=== PATIENT | male | born 1930 | race Caucasian/White ===

== ENCOUNTER 2016-12-07 16:03 | Inpatient (IN) ==
--- NOTE | 2016-12-07 16:58 | Emergency Department Note ---
GI Bleed HPI - General Chief complaint: Rectal Bleed Stated complaint: Blood in stool Time Seen by Provider: 12/07/16 16:56 Source: patient Mode of arrival: EMS Limitations: no limitations - History of Present Illness HPI Narrative: Bloody bowel movements daily for the last 2 days it. He states on average is had 2 bowel movements which were just grossly bloody. He does take Aleve, used to take aspirin but no longer does that. Cannot remember when he last took aspirin. Denies being on any blood thinners, no history of recent colonoscopy, he states last colonoscopy was about [address] Dejesus. The. Denies any abdominal pain. He's had no nausea, vomiting or cramps, denies any dizziness or lightheadedness. MD complaint: melena - Related Data Home Medications Medication Instructions Recorded Confirmed Naproxen Sodium [All Day Relief] 220 mg PO PRN PRN 06/26/16 12/07/16 Omeprazole [PriLOSEC] 20 mg PO ACB 06/26/16 12/07/16 levETIRAcetam [Keppra] 500 mg PO BID 06/26/16 12/07/16 Allergies Allergy/AdvReac Type Severity Reaction Status Date / Time No Known Drug Allergies Allergy Verified 12/07/16 16:07 Review of Systems All systems ED: reviewed and negative except as stated. Past Medical History - Past Medical History Source: nursing notes reviewed Medical history: Reports: arthritis, GERD, seizures Surgical history ED: Reports: cholecystectomy Family history: Reports: no significant family history - Social History smoking status: Never smoker Alcohol use: Reports: Occasionally Drug use: Reports: none Physical Exam - General Limitations: no limitations General appearance: alert - Head Head exam: atraumatic - Eye Eye exam: Present: normal appearance, PERRL, EOMI. Absent: scleral icterus - ENT ENT exam: normal exam, normal oropharynx, mucous membranes moist, TM's normal bilaterally - Neck Neck exam: Present: normal inspection, full ROM - Chest Chest inspection: Present: normal inspection, symmetric chest wall rise - Respiratory Respiratory exam: Present: normal lung sounds bilaterally. Absent: respiratory distress, wheezes - Cardiovascular Cardiovascular exam: Present: regular rate, normal rhythm, normal heart sounds - Abdominal Exam Abdominal exam: Present: soft. Absent: distention, tenderness, guarding - Rectal Exam Rectal exam: Present: decreased rectal tone, bloody stool, prostate enlargement. Absent: fecal impaction, hemorrhoids - exam: Present: normal inspection - Back Exam Back exam: Present: normal inspection. Absent: CVA tenderness (R), CVA tenderness (L) - Neurological Exam Neurological exam: Present: alert, oriented X3 - Psychiatric Psychiatric exam: Present: normal affect, normal mood - Skin Skin exam: Present: warm, dry, intact, normal color. Absent: cyanosis, diaphoresis Course Vital Signs Temperature 97.1 F L 12/07/16 16:04 Pulse Rate 86 12/07/16 16:04 Respiratory Rate 18 12/07/16 16:04 Blood Pressure 113/68 12/07/16 16:04 Pulse Oximetry (%) 98 12/07/16 16:04 Temperature 97.1 F L 12/07/16 16:04 Pulse Rate 65 12/07/16 18:30 Respiratory Rate 18 12/07/16 16:04 Blood Pressure 110/99 12/07/16 18:30 Pulse Oximetry (%) 100 12/07/16 18:30 GI Bleed - [facility] Narrative Medical decision making narrative: Labs reviewed and were normal with exception his hemoglobin was 12 and hematocrit was 38. I do not have any old ones to compare to. He had a total of 2 bloody bowel movements out. He was here in the ED, we did send this for stool culture and fecal leukocytes. At this point, he was orthostatic, discussed with Dr. Johnson as well as Dr. Aguilera. The. Final diagnosis is rectal bleeding, likely diverticular bleed. - Lab Data Lab results reviewed: Yes I reviewed the patient's lab results. Result diagrams: 12/07/16 17:05 12/07/16 17:05 Lab Results 12/07/16 12/07/16 12/07/16 Range/Units 17:05 17:05 17:05 WBC 6.6 (4.5-11.0) K/mcL RBC 4.13 L (4.50-5.90) M/mcL Hgb 12.6 L (13.5-16.5) g/dL Hct 38.6 L (41.0-55.0) % MCV 93.6 (80.0-100.0) fL MCH 30.5 (26.0-34.0) pg MCHC 32.6 (31.0-36.0) g/dL RDW 13.0 (11.5-14.5) % Plt Count 303 (140-440) K/mcL MPV 8.5 (7.4-10.4) fL Gran % 59.1 (38.0-78.0) % Lymph % (Auto) 28.0 (15.5-49.0) % [place] % (Auto) 9.2 H (1.0-9.0) % Eos % (Auto) 2.6 (0.0-7.0) % Baso % (Auto) 1.1 (0.0-2.0) % Gran # 3.9 (1.8-8.0) K/mcL Lymph # 1.8 (1.5-4.8) K/mcL [place] # 0.6 (0.1-0.9) K/mcL Eos # 0.2 (0.0-0.7) K/mcL Baso # 0.1 (0.0-0.3) K/mcL POC PT 12.0 sec POC INR 1.0 (0.9-1.2) Sodium 141 (133-145) mmol/L Potassium 4.3 (3.3-5.1) mmol/L Chloride 104 (96-108) mmol/L Carbon Dioxide 26 (22-30) mmol/L Anion Gap 11.0 (8-16) BUN 16 (8-23) mg/dl Creatinine 0.8 (0.7-1.2) mg/dl GFR Calculation 80 Glucose 105 (70-105) mg/dL Calcium 8.6 (8.6-10.4) mg/dl Total Bilirubin 0.4 (0.0-1.0) mg/dL AST 18 (0-37) U/l ALT 27 (0-40) U/l Alkaline Phosphatase 85 (39-117) U/L Total Protein 6.1 (5.9-8.4) gm/dL Albumin 3.5 (3.2-5.2) gm/dL Globulin 2.6 (2.2-3.7) gm/dL Albumin/Globulin Ratio 1.3 (1.0-2.3) Disposition Clinical Impression: Lower gastrointestinal hemorrhage Disposition: Xfer As Outpt/Obs ([facility]) Condition: Fair Referrals: Javi Cooper MD [Primary Care Provider] -
[2016-12-07] MEDS ORDERED: LACTATED RINGERS 1,000 ML IV ONE (16:59)
[2016-12-07 17:38] LABS: Basophils # (Auto) 0.1 K/mcL (0.0-0.3); Basophils % (Auto) 1.1 % (0.0-2.0); Eosinophils # (Auto) 0.2 K/mcL (0.0-0.7); Eosinophils % (Auto) 2.6 % (0.0-7.0); Granulocytes % (Auto) 59.1 % (38.0-78.0); Lymphocytes # (Auto) 1.8 K/mcL (1.5-4.8); Mean Cell Volume 93.6 fL (80.0-100.0); Mean Corpuscular HGB Conc 32.6 g/dL (31.0-36.0); Mean Corpuscular Hemoglobin 30.5 pg (26.0-34.0); Monocytes # (Auto) 0.6 K/mcL (0.1-0.9); Monocytes % (Auto) 9.2 % (1.0-9.0); Platelet Count 303 K/mcL (140-440); RBC 4.13 M/mcL (4.50-5.90)
[2016-12-07 18:02] LABS: ALT/SGPT 27 U/l (0-40); Albumin 3.5 gm/dL (3.2-5.2); Albumin/Globulin Ratio 1.3 (1.0-2.3); Alkaline Phosphatase 85 U/L (39-117); Blood Urea Nitrogen 16 mg/dl (8-23)
[2016-12-07] MEDS ORDERED: ONDANSETRON 4 MG/2 ML VIAL IV PRN (19:25)
[2016-12-07] MEDS ORDERED: ACETAMINOPHEN 325 MG TABLET PO PRN (19:25)
--- NOTE | 2016-12-07 19:55 | Internal Med History&Physical ---
Medical - H&P: HPI Patient information: Note initiated : 12/07/16 at 7:49 pm Service Date, if different from initiated Date: [] Patient: Miah Ledesma 86 y/o M admitted on for Blood in stool. Chief Complaint: [] History of present illness: Mr. Ledesma is an 86 year old male who says he was in his usual state of health until about one week ago when he does both developed nausea, vomiting, and diarrhea. She says that lasted 2 or 3 days and then resolved. He says he felt reasonably well for a couple of days, and then 2 days ago began to pass gas that was associated with bright red blood. Yesterday and today he actually started having overtly bloody bowel movements, which he describes as rather explosive. He has been having some lower abdominal cramping as well. He and his are stating that he had a colonoscopy within the last 8 years, and was told it was normal and that he would never need to have another one. he presented to the emergency room for evaluation and was found to be orthostatic with his systolic blood pressure dropping from about 120 down to 103 , and his heart rate rising by 15 points. Hemoglobin is 12.6, with hematocrit of 38, compared to a hematocrit of 44 in May last year. Otherwise, he denies fever or chills, headaches or dizziness, new eye or ear symptoms,sore throat or cough, chest pain or palpitations, shortness of breath He has not had nausea or vomiting for the last 2 days. He does note some urinary hesitancy and frequency, which she's had for quite a while. Past medical history: arthritis for which he takes Aleve Seizures that started 4 or 5 years ago but none for several years History of cholecystectomy History of B12 deficiency He denies history of coronary disease, hypertension, diabetes, stroke, cancer. current medications: Aleve 1 twice a day for arthritis omeprazole 20 mg daily for GI prophylaxis Keppra 500 mg by mouth twice a day allergies: He has no known drug allergies Family history:Mother in her 80s with COPD father with OR, reportedly at a young age, he has some half siblings, but their health is unknown. Social history: The patient is and lives with his . They do not have children, and did not have family in the area. He has never been a smoker and does not use drugs. He drinks alcohol rarely. Medical - H&P: Meds Home Medications Medication Instructions Recorded Confirmed Type Naproxen Sodium [All Day Relief] 220 mg PO PRN PRN 06/26/16 12/07/16 History Omeprazole [PriLOSEC] 20 mg PO ACB 06/26/16 12/07/16 History levETIRAcetam [Keppra] 500 mg PO BID 06/26/16 12/07/16 History Allergies Allergy/AdvReac Type Severity Reaction Status Date / Time No Known Drug Allergies Allergy Verified 12/07/16 16:07 Medical - H&P: Exam - Constitutional Vitals: Temp Pulse Resp BP Pulse Ox 97.1 F L 68 18 113/68 100 12/07/16 19:07 12/07/16 19:30 12/07/16 19:07 12/07/16 19:07 12/07/16 19:07 Exam: on exam, he is a well-developed well-nourished elderly man in no acute distress. head is cephalic, atraumatic. Ears: He has bilateral hearing aids. Canals and TMs are clear. eyes:PERRLA, EOMI, anicteric. pharynx:Is normal in appearance. Mucosa appears normal. neck:Is supple, without lymphadenopathy, JVD, thyromegaly, bruits. Cardiac exam:Regular rate and rhythm, with normal S1 and S2, without murmurs, rubs, gallops. Lungs: Are clear to auscultation, without rales, rhonchi, wheezes. Abdomen: Is soft and nontender Bowel sounds are somewhat hyperactive. There is no guarding or rebound. No masses are noted. Rectal exam;Patient had grossly bloody stool in the emergency room. Extremities: Show no cyanosis, clubbing, edema. Neurologic exam:Patient is alert and oriented, calm and cooperative. Motor exam is grossly nonfocal. Skin exam:He has a few tiny scabs on his shins. Medical - H&P: Reslt - Labs CBC & Chem 7: 12/07/16 17:05 12/07/16 17:05 Labs: Short CBC 12/07/16 Range/Units 17:05 WBC 6.6 (4.5-11.0) K/mcL Hgb 12.6 L (13.5-16.5) g/dL Hct 38.6 L (41.0-55.0) % Plt Count 303 (140-440) K/mcL BMP 12/07/16 17:05 Sodium 141 Potassium 4.3 Chloride 104 Carbon Dioxide 26 BUN 16 Creatinine 0.8 Glucose 105 Calcium 8.6 Liver Function 12/07/16 Range/Units 17:05 Total Bilirubin 0.4 (0.0-1.0) mg/dL AST 18 (0-37) U/l ALT 27 (0-40) U/l Alkaline Phosphatase 85 (39-117) U/L Albumin 3.5 (3.2-5.2) gm/dL last May showed a POC hematocrit of 44 Medical - H&P: A/P (1) Seizure disorder Current visit: Yes Status: Acute (2) Osteoarthritis Current visit: Yes Status: Acute (3) History of cholecystectomy Current visit: Yes Status: Acute (4) Dehydration Current visit: No Status: Acute (5) Lower gastrointestinal hemorrhage Current visit: Yes Status: Acute #1. GI. -Patient presents with signs and symptoms of a lower GI bleed, most likely diverticular. He has passed quite a bit in the way bloody stools as I am concerned about significant drop in his hematocrit - He has been admitted to telemetry, for close monitoring. He will have frequent vital signs and every 4 hours CBC until he is stable. -Type and cross for 2 units .-GI consult with Dr. Aguilera. Patient will be prepped for colonoscopy tomorrow afternoon. -change omeprazole to IV Protonix. #2. CODE STATUS: The patient says he does have a living will, although he and his seemed uncertain about the CODE STATUS. He would accept limited resuscitation measures, but does not want to live halfway on life support. They think that if he needed something short-term to get him through a crisis, that they would accept that. #3. dvt PROPHYLAXIS: scdS. #4. hISTORY OF OSTEOARTHRITIS. hOLD nsaidS FOR NOW. uSE iv PAIN MEDS IF NEEDED AND BY MOUTH tYLENOL. #5. sEIZURE DISORDER. cONTINUE kEPPRA. #6. hISTORY OF b12 DEFICIENCY, FOR WHICH SHE RECEIVES MONTHLY INJECTIONS. this visit took approximately 60 minutes, to review his records, review his case with the ER M.D.,interview and examine the patient , as well as with GI, and write orders.
[2016-12-07] MEDS ORDERED: POLYETHYLENE GLYCOL 3350 17 GM PACKET PO SCH (20:00)
[2016-12-07] MEDS ORDERED: PANTOPRAZOLE 40 MG VIAL IV ONE (20:06)
[2016-12-07] MEDS: POTASSIUM CHLORIDE 20 MEQ in DEXTROSE 5%-1/2NS 1,000 ML IV SCH (20:32)
[2016-12-07 20:51] LABS: Basophils # (Auto) 0 K/mcL (0.0-0.3); Basophils % (Auto) 0.6 % (0.0-2.0); Eosinophils # (Auto) 0.1 K/mcL (0.0-0.7); Granulocytes % (Auto) 62.6 % (38.0-78.0); Lymphocytes % (Auto) 27.8 % (15.5-49.0); Mean Cell Volume 94.5 fL (80.0-100.0); Mean Corpuscular HGB Conc 32.3 g/dL (31.0-36.0); Mean Corpuscular Hemoglobin 30.5 pg (26.0-34.0); Monocytes # (Auto) 0.5 K/mcL (0.1-0.9); Platelet Count 301 K/mcL (140-440); RBC 3.82 M/mcL (4.50-5.90)
[2016-12-07 21:00] LABS: ALT/SGPT 23 U/l (0-40); Albumin 3.3 gm/dL (3.2-5.2); Albumin/Globulin Ratio 1.4 (1.0-2.3); Alkaline Phosphatase 81 U/L (39-117); Bilirubin,Direct < 0.2 mg/dL (0.0-0.3); Blood Urea Nitrogen 14 mg/dl (8-23); Gamma Glutamyl Transpeptidase 27 U/L (8-61); Magnesium 1.9 mg/dL (1.6-2.5); Phosphorous 2.1 mg/dL (2.7-4.5); Uric Acid 4.5 mg/dL (2.5-8.0)
[2016-12-07] MEDS ORDERED: FAMOTIDINE/PF 20 MG/2 ML VIAL IV SCH (21:00)
[2016-12-07] MEDS: levETIRAcetam 500 MG TABLET PO SCH (21:11)
[2016-12-07] MEDS: POLYETHYLENE GLYCOL 3350 17 GM PACKET PO SCH ×3 (21:11→23:06)
--- NOTE | 2016-12-07 21:36 | Consultation ---
DATE OF CONSULTATION: 12/07/2016 CHIEF COMPLAINT: Rectal bleeding. HISTORY OF PRESENT ILLNESS: The patient is an 86-year-old white male who presented to the emergency room today after experiencing two days of gross rectal bleeding at home. He did not bring this to the attention of his until today. He has never had any history of significant GI bleeding. He recalls having had a colonoscopy by Dr. Stevens probably more than 5 years ago as best he and his can recall. He was told at that time that he would not need another colonoscopy and that he did not have any significant polyps that he can recall. He is on no anticoagulation. Last week he and his both had some sort of an intestinal flu with diarrhea, but that problem had apparently resolved. Then about two days ago he began to experience painless rectal bleeding. There may be some cramps associated with the passage of blood or just prior to passing the blood but no significant pain. No vomiting or hematemesis. No melena. He has been a bit prone to lightheadedness. He is not sure that is entirely due to the bleeding. He says that as a baseline he has a tendency to become dizzy when he stands up from a reclining or seated position. He eventually did bring the bleeding to his 's attention, and she encouraged him to come to the emergency room. At the emergency room his hemoglobin is 12.6, BUN normal at 16, and his INR is 1. He is a bit orthostatic at the emergency room. He has been admitted by the hospitalist service and GI consultation is requested. PAST MEDICAL HISTORY: 1. Seizure disorder. 2. GERD. 3. Arthritis. PAST SURGICAL HISTORY: Cholecystectomy. SOCIAL HISTORY: Occasional alcohol use. No smoking. . FAMILY HISTORY: Noncontributory. MEDICATIONS: His medications as an outpatient include: 1. Aleve p.r.n. 2. Omeprazole 20 mg daily. 3. Keppra 500 mg b.i.d. ALLERGIES: No known drug allergies. PHYSICAL EXAMINATION: VITAL SIGNS: Blood pressure is 119/71, pulse 65, respirations 18, temperature 97.1 degrees. GENERAL: The patient is awake and alert. No acute distress. SKIN: Without stigmata of chronic liver disease. NECK: Without mass or lymphadenopathy. LUNGS: Clear bilaterally to auscultation. CARDIAC: Regular rate and rhythm without gallop. ABDOMEN: Soft, nondistended. No mass or hepatosplenomegaly. No evident ascites. GI: Rectal exam was done in the emergency room and revealed bloody stool. LABORATORY STUDIES: White count 6600, hemoglobin 12.6, platelets 303,000. INR 1. BUN 16, creatinine 0.8. Liver chemistries normal. ASSESSMENT AND RECOMMENDATIONS: Given the painless nature of this gross rectal bleeding in an 86-year-old patient, I think diverticular bleeding is most likely. I agree with admitting the patient for observation status. I am going to start a bowel prep with MiraLax, four doses tonight and then another six doses starting at 6:00 a.m. tomorrow morning. Clear liquids throughout this time as well. I will plan a colonoscopy at 2:00 p.m. tomorrow afternoon. I have told the patient and his that diverticular bleeding often stops spontaneously. However, he certainly could continue to lose significant amount of blood and a transfusion may become necessary. I told him that colonoscopy is by no means universally successful in identifying a bleeding site and/or controlling bleeding. However, if I do find a bleeding site at colonoscopy tomorrow I would anticipate either injecting epinephrine and/or hemostatic clipping or other endoscopic techniques to bring about hemostasis. Further recommendations will follow based upon findings at colonoscopy tomorrow. Thank you for this consultation. EZEQUIEL:javier Job ID: [id number] Doc ID: [id number] Xander Cooper MD
[2016-12-08] MEDS: POLYETHYLENE GLYCOL 3350 17 GM PACKET PO SCH ×7 (00:07→11:09)
[2016-12-08 01:53] LABS: Basophils # (Auto) 0 K/mcL (0.0-0.3); Basophils % (Auto) 0.7 % (0.0-2.0); Eosinophils # (Auto) 0.2 K/mcL (0.0-0.7); Eosinophils % (Auto) 2.9 % (0.0-7.0); Granulocytes % (Auto) 58.1 % (38.0-78.0); Lymphocytes % (Auto) 29.1 % (15.5-49.0); Mean Cell Volume 93.2 fL (80.0-100.0); Mean Corpuscular HGB Conc 32.3 g/dL (31.0-36.0); Mean Corpuscular Hemoglobin 30.1 pg (26.0-34.0); Monocytes # (Auto) 0.6 K/mcL (0.1-0.9); Monocytes % (Auto) 9.2 % (1.0-9.0); Platelet Count 302 K/mcL (140-440); RBC 3.55 M/mcL (4.50-5.90); Red Cell Distribution Width 13.1 % (11.5-14.5)
[2016-12-08 05:25] LABS: Basophils # (Auto) 0 K/mcL (0.0-0.3); Basophils % (Auto) 0.4 % (0.0-2.0); Eosinophils # (Auto) 0.1 K/mcL (0.0-0.7); Eosinophils % (Auto) 1.4 % (0.0-7.0); Lymphocytes # (Auto) 1.4 K/mcL (1.5-4.8); Mean Cell Volume 93.6 fL (80.0-100.0); Mean Corpuscular HGB Conc 32.7 g/dL (31.0-36.0); Mean Corpuscular Hemoglobin 30.6 pg (26.0-34.0); Monocytes # (Auto) 0.7 K/mcL (0.1-0.9); Monocytes % (Auto) 8.2 % (1.0-9.0); Platelet Count 273 K/mcL (140-440); RBC 3.28 M/mcL (4.50-5.90); Red Cell Distribution Width 13.3 % (11.5-14.5)
[2016-12-08 05:30] LABS: ALT/SGPT 21 U/l (0-40); Albumin/Globulin Ratio 1.5 (1.0-2.3); Alkaline Phosphatase 71 U/L (39-117); Bilirubin,Direct < 0.2 mg/dL (0.0-0.3); Blood Urea Nitrogen 15 mg/dl (8-23); Gamma Glutamyl Transpeptidase 20 U/L (8-61); Magnesium 1.9 mg/dL (1.6-2.5); Phosphorous 2.3 mg/dL (2.7-4.5); Uric Acid 4.6 mg/dL (2.5-8.0)
[2016-12-08] MEDS: POTASSIUM CHLORIDE 20 MEQ in DEXTROSE 5%-1/2NS 1,000 ML IV SCH (06:12)
[2016-12-08] MEDS: DEXTROSE 5%-1/2NS W/20MEQ KCL 1,000 ML IV SCH ×2 (07:22→19:19)
[2016-12-08] MEDS: levETIRAcetam 500 MG TABLET PO SCH ×2 (08:18→20:19)
[2016-12-08 08:50] LABS: Basophils # (Auto) 0.1 K/mcL (0.0-0.3); Basophils % (Auto) 0.9 % (0.0-2.0); Eosinophils # (Auto) 0.1 K/mcL (0.0-0.7); Eosinophils % (Auto) 1.1 % (0.0-7.0); Granulocytes % (Auto) 66.6 % (38.0-78.0); Lymphocytes # (Auto) 1.8 K/mcL (1.5-4.8); Lymphocytes % (Auto) 24.2 % (15.5-49.0); Mean Cell Volume 92.4 fL (80.0-100.0); Mean Corpuscular HGB Conc 33.3 g/dL (31.0-36.0); Mean Corpuscular Hemoglobin 30.7 pg (26.0-34.0); Monocytes # (Auto) 0.5 K/mcL (0.1-0.9); Monocytes % (Auto) 7.2 % (1.0-9.0); Platelet Count 276 K/mcL (140-440); RBC 3.31 M/mcL (4.50-5.90); Red Cell Distribution Width 12.9 % (11.5-14.5)
--- NOTE | 2016-12-08 11:55 | Internal Med Progress Note ---
Medical - PN: Subj Patient information: Note initiated : 12/08/16 at 11:54 am Service Date, if different from initiated Date: [] Patient: Miah Ledesma 86 y/o M admitted on 12/07/16 for Blood in stool. Chief Complaint: [] Interval history: December 07, 2016:History of present illness: Mr. Ledesma is an 86 year old male who says he was in his usual state of health until about one week ago when he does both developed nausea, vomiting, and diarrhea. She says that lasted 2 or 3 days and then resolved. He says he felt reasonably well for a couple of days, and then 2 days ago began to pass gas that was associated with bright red blood. Yesterday and today he actually started having overtly bloody bowel movements, which he describes as rather explosive. He has been having some lower abdominal cramping as well. He and his are stating that he had a colonoscopy within the last 8 years, and was told it was normal and that he would never need to have another one. he presented to the emergency room for evaluation and was found to be orthostatic with his systolic blood pressure dropping from about 120 down to 103 , and his heart rate rising by 15 points. Hemoglobin is 12.6, with hematocrit of 38, compared to a hematocrit of 44 in May last year. Otherwise, he denies fever or chills, headaches or dizziness, new eye or ear symptoms,sore throat or cough, chest pain or palpitations, shortness of breath He has not had nausea or vomiting for the last 2 days. He does note some urinary hesitancy and frequency, which she's had for quite a while. December 08, 2016: today, the patient states he feels "about the same". He has been given bowel prep overnight, and continues to have slightly bloody bowel movements. His hemoglobin dropped to 10, but has not dropped below that. Otherwise she is still having some mild abdominal bloating and cramping He denies fever or chills, chest pain or shortness of breath, nausea or vomiting, dysuria. e has been tolerating a clear liquid diet. Colonoscopy is planned for this afternoon,to assess for diverticular bleed. - Constitutional Vitals: Vital Signs Temp Pulse Resp BP Pulse Ox 98.1 F 72 16 116/60 96 12/08/16 07:34 12/08/16 07:34 12/08/16 07:34 12/08/16 07:34 12/08/16 07:34 Period Temp Pulse Resp BP Sys/[place] Pulse Ox Last 24 Hr 97.7 F-98.8 F 46-141 14-16 116-166/60-81 95-99 Intake and Output 12/07/16 12/08/16 12/08/16 21:59 05:59 13:59 Intake Total 650 / 650 1660 / 1660 Output Total 950 / 950 575 / 575 Balance -300 / -300 1085 / 1085 Weight 165 lb Intake & Output: Intake & Output 12/07/16 12/08/16 12/08/16 21:59 05:59 13:59 Intake Total 650 / 650 1660 / 1660 Output Total 950 / 950 575 / 575 Balance -300 / -300 1085 / 1085 Weight 165 lb Intake: IV 1010 / 1010 Potassium Chloride 20 Meq 1010 / 1010 In Dextrose 5%-1/2Ns IV Solution 1,000 ml @ 100 mls/hr IV .Q10H6M [facility] Rx# :[id number] Oral 650 / 650 650 / 650 Output: Void Amount 0 / 0 Urine/Stool Mix 950 / 950 575 / 575 Other: # Voids 1 1 # Bowel Movements 1 1 350 Exam: neck:Is supple, without lymphadenopathy, JVD, thyromegaly, bruits. Cardiac exam:Regular rate and rhythm, with normal S1 and S2. Lungs: Are clear to auscultation, without rales, rhonchi, wheezes. Abdomen: Is soft and nontender other than just feeling a little bloated in the lower abdomen.bowel sounds are hyperactive. Extremities: Show no cyanosis, clubbing, edema. Neurologic exam:Patient is alert and oriented, calm and cooperative. Motor exam is grossly nonfocal. Medical - PN: Obj Da - Labs CBC & Chem 7: 12/08/16 08:00 12/08/16 03:55 Labs: Abnormal Lab Results 12/08/16 12/08/16 12/08/16 08:00 03:55 03:55 RBC 3.31 L 3.28 L Hgb 10.2 L 10.1 L Hct 30.6 L 30.7 L [place] % (Auto) Lymph # 1.4 L Anion Gap 5.0 L Glucose 142 H Calcium 8.0 L Phosphorus 2.3 L Total Protein 5.0 L Albumin 3.0 L Globulin 2.0 L 12/08/16 12/07/16 12/07/16 00:25 19:40 19:40 RBC 3.55 L 3.82 L Hgb 10.7 L 11.6 L Hct 33.1 L 36.1 L [place] % (Auto) 9.2 H Lymph # Anion Gap Glucose Calcium 8.4 L Phosphorus 2.1 L Total Protein 5.7 L Albumin Globulin last May showed a POC hematocrit of 44 Meds: Medications Acetaminophen (Tylenol) 650 mg PO Q6HP PRN PRN Reason: PAIN/FEVER > 101 Potassium Chloride/Dextrose/Sod Cl (Dextrose 5%-1/2ns W/20meq Kcl) 1,000 mls @ 100 mls/hr IV .Q10H [facility] Last Admin: 12/08/16 07:22 Dose: 100 mls/hr Levetiracetam (Keppra) 500 mg PO BID [facility] Last Admin: 12/08/16 08:18 Dose: 500 mg Ondansetron HCl (Zofran) 4 mg IV Q4HP PRN PRN Reason: Nausea And Vomiting Last Admin: 12/08/16 01:36 Dose: 4 mg Medical - PN: A/P - Time Spent With Patient Total time spent is greater than 50% in coordination of care (as documented) at patient's floor/unit and/or counseling patient: (1) Seizure disorder Status: Acute Current Visit: Yes (2) Osteoarthritis Status: Acute Current Visit: Yes (3) History of cholecystectomy Status: Acute Current Visit: Yes (4) Dehydration Status: Acute Current Visit: No (5) Lower gastrointestinal hemorrhage Status: Acute Current Visit: Yes - Narrative A/P Narrative: #1. GI. -Patient presents with signs and symptoms of a lower GI bleed, most likely diverticular. He has passed quite a bit in the way bloody stools code but this does appear to be slowing down. Vital signs have been stable overnight. - He has been admitted to telemetry, for close monitoring. He will have frequent vital signs and every 4 hours CBC until he is stable.-Type and cross for 2 units .-GI consult with Dr. Aguilera. -continue bowel prep, for colonoscopy this afternoon. -change omeprazole to IV Protonix. #2. CODE STATUS: The patient says he does have a living will, although he and his seemed uncertain about the CODE STATUS. He would accept limited resuscitation measures, but does not want to live shelter on life support. They think that if he needed something short-term to get him through a crisis, that they would accept that. #3. dvt PROPHYLAXIS: scdS. #4. hISTORY OF OSTEOARTHRITIS. hOLD nsaidS FOR NOW. uSE iv PAIN MEDS IF NEEDED AND BY MOUTH tYLENOL. #5. sEIZURE DISORDER. cONTINUE kEPPRA. #6. hISTORY OF b12 DEFICIENCY, FOR WHICH SHE RECEIVES MONTHLY INJECTIONS. Approximately 25 minutes was spent today, reviewed the patient's chest results, reviewing his care with nursing staff, interviewing and examining the patient, discussing today's plan with he and his . Medical - PN: Qual - VTE Deep Vein Thrombosis/Pulmonary Embolism Present on Admission: No
[2016-12-08] MEDS ORDERED: KETAMINE 10 MG/ML ML IV PRN (12:42)
[2016-12-08] MEDS ORDERED: PROPOFOL 200 MG/20 ML VIAL IV SCH (12:45)
[2016-12-08] MEDS ORDERED: MIDAZOLAM 2 MG/2 ML VIAL IV SCH (12:45)
[2016-12-08] MEDS ORDERED: PROPOFOL 20 ML IV ONE ×2 (13:51)
[2016-12-08] MEDS ORDERED: MIDAZOLAM 2 MG/2 ML VIAL ONE (13:52)
[2016-12-08 16:09] LABS: Basophils # (Auto) 0 K/mcL (0.0-0.3); Basophils % (Auto) 0.4 % (0.0-2.0); Eosinophils # (Auto) 0.1 K/mcL (0.0-0.7); Eosinophils % (Auto) 1.8 % (0.0-7.0); Granulocytes % (Auto) 60.6 % (38.0-78.0); Lymphocytes % (Auto) 27.7 % (15.5-49.0); Mean Corpuscular HGB Conc 31.8 g/dL (31.0-36.0); Mean Corpuscular Hemoglobin 30.2 pg (26.0-34.0); Monocytes # (Auto) 0.7 K/mcL (0.1-0.9); Monocytes % (Auto) 9.5 % (1.0-9.0); Platelet Count 304 K/mcL (140-440)
[2016-12-09] MEDS: DEXTROSE 5%-1/2NS W/20MEQ KCL 1,000 ML IV SCH (05:29)
[2016-12-09 06:14] LABS: Basophils # (Auto) 0 K/mcL (0.0-0.3); Basophils % (Auto) 0.5 % (0.0-2.0); Eosinophils # (Auto) 0.2 K/mcL (0.0-0.7); Eosinophils % (Auto) 2.7 % (0.0-7.0); Granulocytes % (Auto) 66.6 % (38.0-78.0); Lymphocytes # (Auto) 1.7 K/mcL (1.5-4.8); Lymphocytes % (Auto) 21.5 % (15.5-49.0); Mean Cell Volume 93.8 fL (80.0-100.0); Mean Corpuscular HGB Conc 32.5 g/dL (31.0-36.0); Mean Corpuscular Hemoglobin 30.5 pg (26.0-34.0); Monocytes # (Auto) 0.7 K/mcL (0.1-0.9); Monocytes % (Auto) 8.7 % (1.0-9.0); Platelet Count 265 K/mcL (140-440); RBC 2.97 M/mcL (4.50-5.90); Red Cell Distribution Width 12.8 % (11.5-14.5)
[2016-12-09 06:48] LABS: ALT/SGPT 19 U/l (0-40); Albumin/Globulin Ratio 1.5 (1.0-2.3); Alkaline Phosphatase 72 U/L (39-117); Bilirubin,Direct < 0.2 mg/dL (0.0-0.3); Blood Urea Nitrogen 7 mg/dl (8-23); Gamma Glutamyl Transpeptidase 19 U/L (8-61); Magnesium 1.9 mg/dL (1.6-2.5); Phosphorous 1.7 mg/dL (2.7-4.5); Uric Acid 4.8 mg/dL (2.5-8.0)
[2016-12-09] MEDS ORDERED: POLYETHYLENE GLYCOL 3350 17 GM PACKET PO ONE (07:15)
--- NOTE | 2016-12-09 08:50 | Internal Med Progress Note ---
Medical - PN: Subj Patient information: Note initiated : 12/09/16 at 8:29 am Service Date, if different from initiated Date: [] Patient: Miah Ledesma 86 y/o M admitted on 12/07/16 for Blood in stool. Chief Complaint: [] Interval history: The patient seen examined this AM The patient was admitted to the hosptial for Acute GI bleed, Lower GI bleed of diverticular etiology was the presumptive etiology. The patient h/h had remained stable, and he had undergone a Colonoscopy yesterday, which was unrevealling. The patient was tolerating PO diet well yesterday, however this AM he again had Lower GIB, with clot of blood passed along with blood in the stool vang. Approx 200cc of blood? GI contacted, plan to do a colonoscopy again today, and if needed consider EGD, pt already on PPI. The patient otherwise did not report any other complaints, no chest pain, no shortness of breath, no dizziness, or headache. Pertinent ROS: No chest pain, No cough or shortness of breath. No headache or dizziness. NO abdominal pain, but did have lower gi bleed. Additional PMFSH (Level 3 Only): No Past h/o of Upper GIB reported. - Constitutional Vitals: Vital Signs Temp Pulse Resp BP Pulse Ox 98.5 F 68 16 116/61 95 12/09/16 04:11 12/09/16 07:22 12/09/16 07:22 12/09/16 07:22 12/09/16 07:22 Period Temp Pulse Resp BP Sys/Ulloa Pulse Ox Last 24 Hr 97.7 F-98.6 F 61-110 16-20 112-140/49-76 95-100 Intake and Output 12/08/16 12/09/16 12/09/16 21:59 05:59 13:59 Intake Total 1000 / 1000 1350 / 1350 Output Total 700 / 700 850 / 850 Balance 300 / 300 500 / 500 Weight 169 lb Intake & Output: Intake & Output 12/08/16 12/09/16 12/09/16 21:59 05:59 13:59 Intake Total 1000 / 1000 1350 / 1350 Output Total 700 / 700 850 / 850 Balance 300 / 300 500 / 500 Weight 169 lb Intake: IV 1000 / 1000 1000 / 1000 Dextrose 5%-1/2Ns W/20Meq 1000 / 1000 1000 / 1000 KCl 1,000 ml @ 100 mls/ hr IV .Q10H KAREN Rx#: [id number] Oral 0 / 0 350 / 350 Output: Void Amount 700 / 700 850 / 850 General appearance: cooperative, no no acute distress - Head Head exam: Present: atraumatic, normal inspection, normocephalic - Eye Eye exam: Absent: conjunctival injection, periorbital swelling, periorbital tenderness - ENT ENT exam: Present: mucous membranes dry - Neck Neck exam: Present: normal inspection - Respiratory Respiratory exam: Present: normal respiratory exam. Absent: accessory muscle use, rhonchi, stridor, wheezes - Cardiovascular Cardiovascular exam: Present: normal rate and rhythm, +S1, +S2 - GI/Abdominal GI/Abdominal exam: Present: normal bowel sounds, soft. Absent: rigid, tenderness - Neurological Exam Neurological exam: Present: alert, CN II-XII intact, oriented X3. Absent: motor sensory deficit - Psychiatric Psychiatric exam: Present: normal affect, normal mood. Absent: agitated Medical - PN: Obj Da - Labs CBC & Chem 7: 12/09/16 03:34 12/09/16 03:34 Labs: Abnormal Lab Results 12/09/16 12/09/16 12/08/16 03:34 03:34 15:50 RBC 2.97 L 3.40 L Hgb 9.1 L 10.3 L Hct 27.9 L 32.3 L Crook % (Auto) 9.5 H Lymph # Chloride 109 H Anion Gap BUN 7 L Glucose 123 H Calcium 8.2 L Phosphorus 1.7 L Total Protein 5.0 L Albumin 3.0 L Globulin 2.0 L 12/08/16 12/08/16 12/08/16 08:00 03:55 03:55 RBC 3.31 L 3.28 L Hgb 10.2 L 10.1 L Hct 30.6 L 30.7 L Crook % (Auto) Lymph # 1.4 L Chloride Anion Gap 5.0 L BUN Glucose 142 H Calcium 8.0 L Phosphorus 2.3 L Total Protein 5.0 L Albumin 3.0 L Globulin 2.0 L 12/08/16 12/07/16 12/07/16 00:25 19:40 19:40 RBC 3.55 L 3.82 L Hgb 10.7 L 11.6 L Hct 33.1 L 36.1 L Crook % (Auto) 9.2 H Lymph # Chloride Anion Gap BUN Glucose Calcium 8.4 L Phosphorus 2.1 L Total Protein 5.7 L Albumin Globulin Meds: Medications Acetaminophen (Tylenol) 650 mg PO Q6HP PRN PRN Reason: PAIN/FEVER > 101 Levetiracetam (Keppra) 500 mg PO BID KAREN Last Admin: 12/08/16 20:19 Dose: 500 mg Ondansetron HCl (Zofran) 4 mg IV Q4HP PRN PRN Reason: Nausea And Vomiting Last Admin: 12/08/16 01:36 Dose: 4 mg Medical - PN: A/P - Time Spent With Patient Total time spent is greater than 50% in coordination of care (as documented) at patient's floor/unit and/or counseling patient: (1) Acute blood loss anemia Status: Acute Assessment and plan: Hb dropped 1gm overnight Monitor q4 hrs for now transfuse if hb < 8 Source likely lower GIB, Upper GIB possible Current Visit: Yes (2) Lower gastrointestinal hemorrhage Status: Acute Assessment and plan: Colonoscopy done by Dr Aguilera negative yesterday, Plan to repeat one today Hopefully EGD will be done if lower GI is neg, on IV PPI for now. Current Visit: Yes (3) Seizure disorder Status: Acute Assessment and plan: no seizure continue his seizure meds, seizure precautions. Current Visit: Yes Medical - PN: Qual - VTE Deep Vein Thrombosis/Pulmonary Embolism Present on Admission: No
--- NOTE | 2016-12-09 09:24 | Operative Note ---
DATE OF OPERATION: 12/08/2016 BOTTLE CLEANER AND ECOMMERCE MANAGER: Xander Woodruff MD ANESTHETIC USED: Propofol 200 mg IV and Versed 2 mg IV. PREOPERATIVE DIAGNOSIS: Acute lower GI bleeding in an elderly patient. POSTOPERATIVE DIAGNOSES: 1. Moderate to severe left-sided diverticulosis, but without active bleeding identified at colonoscopy this afternoon. 2. Large sessile polyp at the ascending colon, removed by hot snare polypectomy and followed by clip placements to prevent bleeding. CONSENT: Prior to the procedure, the patient provided his own informed consent. The patient was evaluated and considered medically fit for endoscopy. DESCRIPTION OF PROCEDURE: With the patient in the left lateral decubitus position, a rectal exam was performed which was remarkable for enlarged prostate. Thereafter, a colonoscope was advanced into the rectum under direct vision. The quality of the prep was good. Exam was completed to the level of the terminal ileum, which appears normal without any blood coming from above. There is moderate to severe left-sided diverticulosis from the distal sigmoid colon up to about the splenic flexure. I irrigated the colon copiously on the way in and on the way out and did not identify a bleeding site. There is some maroon blood. There are some small clots scattered around. Once I got into the transverse colon, there was no gross blood present in the liquid stool. At the ascending colon, there was a large sessile polyp. With reluctance, I went ahead and removed the polyp today using hot snare technique. I say with reluctance because I did not want to introduce another potential bleeding site. I do not think that the polyp was the source of the patient's acute bleeding, of course. I used a captivator snare to remove the polyp in multiple pieces. At the completion of the polypectomy, I did not see any gross residual polyp. I did go ahead and place three hemostatic clips on the site to try to prevent bleeding. I then continued with the exam of the colon, withdrawing the scope then copiously irrigating and interrogating every diverticulum that I could find. There were no diverticula that had adherent clot or active bleeding evident. I completed the exam in and out of the colon and then repeated that two more times for a total of three total colonoscopies, each time irrigating and suctioning and interrogating as I went. COMPLICATIONS: None immediate. RECOMMENDATIONS AND FOLLOWUP: We will advance the diet to full liquid diet. Continue to monitor hemoglobin and hematocrit and vital signs, also observe for obvious rectal bleeding if it were to resume. I will review the pathology when it is returned. KRISTINAM:yung Job ID: [id number] Doc ID: [id number] Xander Cooper MD
[2016-12-09] MEDS: levETIRAcetam 500 MG TABLET PO SCH (09:46)
[2016-12-09] MEDS: POLYETHYLENE GLYCOL 3350 17 GM PACKET PO SCH ×3 (09:57→12:06)
[2016-12-09 13:39] LABS: Mean Cell Volume 94.3 fL (80.0-100.0); Mean Corpuscular HGB Conc 32.6 g/dL (31.0-36.0); Mean Corpuscular Hemoglobin 30.7 pg (26.0-34.0); Platelet Count 304 K/mcL (140-440); RBC 3.12 M/mcL (4.50-5.90); Red Cell Distribution Width 12.9 % (11.5-14.5)
[2016-12-09] MEDS ORDERED: EPINEPHrine 1 MG/ML (1:1000) VIAL IV PRN (15:09)
[2016-12-09] MEDS ORDERED: MIDAZOLAM 2 MG/2 ML VIAL IV SCH (15:15)
[2016-12-09] MEDS ORDERED: PROPOFOL 200 MG/20 ML VIAL IV SCH (15:15)
[2016-12-09] MEDS ORDERED: GLUCAGON,HUMAN RECOMBINANT 1 MG VIAL IM ONE (16:30)
[2016-12-09] MEDS ORDERED: 0.9 % SODIUM CHLORIDE 500 ML IV ONE (17:56)
--- NOTE | 2016-12-09 18:29 | Transfer Summary ---
Transfer Discharge Sum: Prov Patient information: Note initiated : 12/09/16 at 6:22 pm Service Date, if different from initiated Date: [] Patient: Miah Ledesma 86 y/o M admitted on 12/07/16 for Blood in Stool/Lower GI Bleed. Chief Complaint: [] Date of admission: 12/07/16 19:10 Discharge Date: 12/09/16 Primary care physician: [f_Reg Prim Care Provider] Admitting clinician: Shannon Herrera Consults: 12/07/16 20:00 Consult to Physician [CONS] Routine Comment: Consulting Provider: Xander Woodruff Reason For Exam: Physician to Consult Discharging clinician: Remi Acuña Transfer Discharge Sum: Diag - Discharge Diagnosis (1) Acute blood loss anemia Status: Acute (2) Lower gastrointestinal hemorrhage Status: Acute (3) Seizure disorder Status: Acute Transfer Discharge Sum: Med - Medications Active and Home Medications: Home Medications Naproxen Sodium [All Day Relief] 220 mg PO PRN PRN 06/26/16 [History Confirmed 12/07/16] Omeprazole [PriLOSEC] 20 mg PO ACB 06/26/16 [History Confirmed 12/07/16] levETIRAcetam [Keppra] 500 mg PO BID 06/26/16 [History Confirmed 12/07/16] Active Medications Acetaminophen (Tylenol) 650 mg PO Q6HP PRN PRN Reason: PAIN/FEVER > 101 Diagnostic Test (Pha) (Accu-Chek) 1 each FS ONCE KAREN Stop: 12/09/16 23:09 Last Admin: 12/09/16 17:57 Dose: Not Given Epinephrine HCl (Adrenalin) 1 mg IV PRN PRN PRN Reason: Bleeding Stop: 12/09/16 23:10 Last Admin: 12/09/16 16:28 Dose: 1 mg Levetiracetam (Keppra) 500 mg PO BID KAREN Last Admin: 12/09/16 09:46 Dose: 500 mg Midazolam HCl (Versed) 0 mg IV ONCE KAREN Stop: 12/09/16 23:09 Last Admin: 12/09/16 15:18 Dose: 2 mg Ondansetron HCl (Zofran) 4 mg IV Q4HP PRN PRN Reason: Nausea And Vomiting Last Admin: 12/08/16 01:36 Dose: 4 mg Propofol (Diprivan) 0 mg IV ONCE KAREN Stop: 12/09/16 23:09 Last Admin: 12/09/16 15:17 Dose: 300 mg Transfer Discharge Sum: Hosp Hospital course: Mr. Ledesma is a 86 year old male who was admitted to our faciilty for Lower GI bleed The patient on the day of presentation noted that he had not been feeling well for approximately 1 week, with some abdominal pain, nausea and vomiting, this resolved and he was a little better for 2 days. 2 days prior to ER presentation the patient was having flatus and blood in the stools, with clot passing. The patient was therefore admitted to the hospital for management of GI bleed. Patient was monitored with serial h/h and his hb remained stable. He was seen by GI, Dr Aguilera who performed a colonoscopy on 12/08/16, no active bleeding was noted, a polyp was removed. The patient unfortunately started bleeding again this AM, Dr Bhavik munoz performed a second colonoscopy where he noted significant blood in the distal colon/ sigmoid region. ( verbal communication note not ready). The plan at this time was to observe the patient and have Interventional radiology involved if he bleeds again. Unfortunately as soon as the patient came back to the room, he was having bloody bowel movements again, with significant clot passage. I contacted Dr Diaz, Interventional Radiologist, who accepted the patient for IR intervention for lower GI bleed. The patient was dizzy after passing stools, and given the significant amount of blood loss, we decided to give the patient 1 unit of pRBC. Additional blood can be transfused as needed at the accepting facility. At the time of transfer the patient has remained hemodynamically stable, Dr Phillips at [facility] accepting hospitalist. Plan of care was discussed with the patient and his who were both in agreement with same The patient other comorbidities involve dyspepsia, seizure disorder and osteoarthritics, vit b12 def, all of which seem to be s table. - Time Spent with Patient Total time spent providing and/or coordinating transfer services: Transfer Discharge Sum: Exam - Constitutional Vitals: Vital Signs Temp Pulse Pulse Pulse Resp BP BP 12/09/16 18:06 98.5 F 66 20 12/09/16 16:39 98.8 F 98 H 16 140/68 12/09/16 16:36 70 16 132/42 01/09/17 16:00 97.5 F L 20 132/69 12/09/16 15:48 98.8 F 84 16 128/78 12/09/16 15:16 72 16 138/65 12/09/16 11:25 98.8 F 20 132/61 12/09/16 08:00 98.9 F 12/09/16 07:22 68 16 116/61 12/09/16 04:11 98.5 F 67 16 112/61 12/09/16 02:19 110 H 12/09/16 01:55 68 12/08/16 23:17 108 H 12/08/16 23:05 98.5 F 71 18 126/61 12/08/16 22:39 67 12/08/16 20:19 82 12/08/16 20:00 98.5 F 65 16 124/57 12/08/16 19:15 76 16 12/08/16 19:00 79 BP Pulse Ox 12/09/16 18:06 123/87 96 12/09/16 16:39 100 12/09/16 16:36 100 12/09/16 16:00 100 12/09/16 15:48 97 12/09/16 15:16 97 12/09/16 11:25 98 12/09/16 08:00 12/09/16 07:22 95 12/09/16 04:11 96 12/09/16 02:19 12/09/16 01:55 12/08/16 23:17 12/08/16 23:05 96 12/08/16 22:39 12/08/16 20:19 12/08/16 20:00 96 12/08/16 19:15 97 12/08/16 19:00 Intake and Output 12/09/16 12/09/16 12/09/16 05:59 13:59 21:59 Intake Total 2360 / 2360 1010 / 1010 Output Total 850 / 850 300 / 300 500 / 500 Balance 1510 / 1510 -300 / -300 510 / 510 Intake: IV 2009 1010 / 1010 Sodium Chloride 0.9% 500 58 / 58 ml @ Wide Open IV BOLUS ONE Rx#:[id number] Dextrose 5%-1/2Ns W/20Meq 1000 / 1000 952 / 952 KCl 1,000 ml @ 100 mls/ hr IV .Q10H [facility] Rx#: [id number] Oral 350 / 350 Output: Void Amount 850 / 850 300 / 300 200 / 200 Urine/Stool Mix 200 / 200 Stool 100 / 100 Other: # Bowel Movements 4 1 Weight 169 lb Patient Weight 12/10/16 05:59 Weight 169 lb General appearance: cooperative - Head Head exam: Present: atraumatic, normal inspection, normocephalic - Respiratory Respiratory exam: Present: normal respiratory exam. Absent: accessory muscle use, chest wall tenderness, decreased breath sounds - Cardiovascular Cardiovascular exam: Present: normal rate and rhythm, +S1, +S2 - GI/Abdominal GI/Abdominal exam: Present: normal bowel sounds, soft - Neurological Exam Neurological exam: Present: CN II-XII intact, oriented X3. Absent: motor sensory deficit Transfer Discharge Sum: Data Procedures and tests throughout hospitalization: Pending Orders 12/07/16 19:25 Admit as Inpatient Routine 12/07/16 20:00 Consult to Physician [CONS] Routine 12/07/16 20:12 Communication order ONCE 12/07/16 21:00 levETIRAcetam [Keppra] 500 mg PO BID 12/08/16 12:42 Discharge Criteria .Routine Oxygen Titration (ED/SSSU) NOW Vital Signs .POST-OP RECOVERY 12/09/16 07:16 Consent for Procedure ONCE Notify ONCE 12/09/16 08:55 Seizure precautions CONT 12/09/16 15:09 IV Insertion/Management .ROUTINE Vital Signs .ROUTINE EPINEPHrine [Adrenalin] 1 mg IV PRN PRN 12/09/16 15:15 Accu-Chek 1 each FS ONCE Midazolam [Versed] See Dose Instructions IV ONCE Propofol [Diprivan] See Dose Instructions IV ONCE 12/09/16 17:45 Communication order ONCE 12/09/16 17:50 CBC [Complete Blood Count w/o Diff] Stat CBC with Auto [Complete Blood Count] Q6 12/09/16 20:00 CBC [Complete Blood Count w/o Diff] Q4 12/09/16 Dinner Full Liquid Diet 12/10/16 00:00 CBC [Complete Blood Count w/o Diff] Q4 CBC with Auto [Complete Blood Count] Q6 12/10/16 04:00 CBC [Complete Blood Count w/o Diff] Q4 12/10/16 06:00 CBC with Auto [Complete Blood Count] Q6 12/10/16 12:00 CBC with Auto [Complete Blood Count] Q6 Transfer Discharge Sum: A/P - Problem Maintenance (1) Acute blood loss anemia Status: Acute (2) Lower gastrointestinal hemorrhage Status: Acute (3) Seizure disorder Status: Acute - Plan Disposition: er [facility] Quality Measure Queries - VTE Deep Vein Thrombosis/Pulmonary Embolism Present on Admission: No
[2016-12-09 18:48] LABS: Basophils # (Auto) 0.1 K/mcL (0.0-0.3); Basophils % (Auto) 0.3 % (0.0-2.0); Eosinophils # (Auto) 0.6 K/mcL (0.0-0.7); Granulocytes % (Auto) 73.5 % (38.0-78.0); Lymphocytes # (Auto) 3.2 K/mcL (1.5-4.8); Lymphocytes % (Auto) 16.9 % (15.5-49.0); Mean Cell Volume 93.6 fL (80.0-100.0); Mean Corpuscular HGB Conc 32.9 g/dL (31.0-36.0); Mean Corpuscular Hemoglobin 30.8 pg (26.0-34.0); Monocytes # (Auto) 1.2 K/mcL (0.1-0.9); Monocytes % (Auto) 6.3 % (1.0-9.0); Platelet Count 301 K/mcL (140-440); RBC 2.87 M/mcL (4.50-5.90); Red Cell Distribution Width 12.9 % (11.5-14.5)
--- NOTE | 2016-12-10 08:01 | Operative Note ---
DATE OF OPERATION: 12/09/2016 ANALYTICAL LABORATORY TECHNICIAN AND DEBONER: Xander Woodruff MD ANESTHETIC USED: Propofol 300 mg IV, Versed 2 mg IV, glucagon 1.5 mg IV. PREOPERATIVE DIAGNOSIS: This is the second colonoscopy for this patient who has apparent diverticular bleeding. I performed colonoscopy yesterday and performed polypectomy with that. The patient had no bleeding overnight, but then passed fresh blood again earlier this morning and into the afternoon. POSTOPERATIVE DIAGNOSES: 1. The polypectomy site at the ascending colon appears intact and without any evidence of recent bleeding. 2. Extensive severe left-sided diverticulosis involving the sigmoid and descending colon to the splenic flexure. There is some diverticulosis proximal to that on a scattered basis. Fresh blood and clots were identified throughout the left side of the colon. Despite extensive irrigation a site of definite or suspicious bleeding could not be identified. Prior to the procedure, the patient provided his own informed consent. The patient was evaluated and considered medically fit for endoscopy. DESCRIPTION OF PROCEDURE: With the patient in the left lateral decubitus position, a rectal exam was performed which was unremarkable. Thereafter, a colonoscope was advanced into the rectum under direct vision. The quality of the prep was good in terms in that there was no stool throughout the colon. Unfortunately, there is a large amount of fresh blood, especially in the distal half of the colon. Actually I made my way directly to the right side of the colon today without irrigating much on the way in because I wanted to examine the polypectomy site. The polypectomy site looks very good. There is no clot or any blood in the area. In fact, the liquid stool in the right side of the colon is grossly nonbloody. I then started withdrawing the scope and by time I got to the distal transverse colon, there was fresh blood around. I irrigated and suctioned and went back and forth throughout the left side of the colon a few times. Even though there was fresh blood around it I could not identify where it was coming from. I am most suspicious of the mid sigmoid colon where I came across a large poorly formed clot that occupied most of the lumen. I had to resort to grabbing hold of the clot with the suction of my scope and then I pulled blood clot out of the patient, then reinserted the scope. The colonoscopy with irrigation and suctioning and interrogation of all visible diverticula continued for over an hour. By the time I was done, I had looked back and forth throughout the left half of the colon probably 8 or 10 times. There was one diverticulum that had a little wisp of clot that I was not entirely convinced was the bleeding source, but I did go ahead and inject 2 mL of hypertonic saline and epinephrine at this site. It was not by any means convincing as the bleeding site. By the time I had completed my irrigation and examination's the colon there was only a minimal amount of blood and/or altered clots or altered blood present and I removed the scope. COMPLICATIONS: None immediate. RECOMMENDATIONS AND FOLLOWUP: I have talked again to the patient's today. At this point the patient will be returned to the Intensive Care Unit. His hemoglobin this afternoon was 9.9. I anticipate that will go lower. If the hemoglobin does go below 8 and/or if the patient becomes hemodynamically unstable, then I will recommend transfusion of packed red blood cells. He will be on full liquid diet now. If it turns out that he does not have any more gross rectal bleeding for the next 48 hours, then I think he can be discharged home. On the other hand, if he does rebleed grossly then recommendation is to transfer him to [facility] where he can undergo angiography with intervention. I have talked to Dr. Xander Diaz by phone this afternoon after the procedure was done to alert him to the patient's case. He is in town and is available if necessary. I also told the patient's that ultimately if he were to have rebleeding of several units of blood and angiographic and colonoscopy methods fail to achieve hemostasis, then the ultimate intervention is subtotal colectomy. Hopefully, that will not become necessary. EZEQUIEL:yung Job ID: [id number] Doc ID: [id number] Xander Cooper MD
--- NOTE | 2016-12-10 13:45 | Surgical Pathology Report ---
HISTOLOGY SPECIMEN MICROSCOPIC DIAGNOSIS COLON, PROXIMAL ASCENDING, POLYPECTOMY: -- MULTIPLE FRAGMENTS OF TUBULAR ADENOMA(S). (DMT:kathleen) CLINICAL HISTORY Lower GI bleed. PROCEDURAL IMPRESSION Polyp; diverticulosis; hemorrhoids. GROSS DESCRIPTION Received in formalin labeled proximal ascending colon polyp, are multiple fragments of raymond tissue ranging in size from 0.1 to 0.6 cm. Totally submitted - two cassettes. (KGW:sln) Electronically Signed by: Javi Vega M.D.
== END 2016-12-09 18:48 | disposition short-term general hospital (02) | DRG 378 ==
LOC: ED 16:03 → ICU 19:10
PROVIDERS: ADMIT Internal Medicine; ATTEND Internal Medicine